=== PATIENT | male | born 1950 | race African-American/Black ===

== ENCOUNTER → 2017-06-05 | Emergency (ER) | payer OTHER ==
[~2017-06-05] VITALS: Ht 182.9 cm; Wt 92.5 kg
[~2017-06-05] MED LIST: BLOOD PRESSURE MEDS
[2017-06-05 09:46] VITALS: BP 134/92
== END | disposition home or self-care (01) ==
LOC: ER 09:34
DX: S61.215A Laceration without foreign body of left ring finger without damage to nail, initial encounter (principal); I10 Essential (primary) hypertension; F17.200 Nicotine dependence, unspecified, uncomplicated; W26.0XXA Contact with knife, initial encounter; Y93.89 Activity, other specified; Y92.89 Other specified places as the place of occurrence of the external cause; Y99.8 Other external cause status
CPT/HCPCS: 12002; 99284; 99406; A4606; A6402; A6403; Z7610